=== PATIENT | male | born 1950 | race Caucasian/White ===

== ENCOUNTER 2016-06-28 07:53 | Day surgery (SDC) | payer MEDICARE, BC ==
[2016-06-28] MEDS ORDERED: fentaNYL 100 MCG/2 ML SDV ONE (08:21)
[2016-06-28] MEDS ORDERED: Midazolam 1 MG/ML 2 ML SDV ONE (08:21)
[2016-06-28] MEDS ORDERED: Propofol 200 MG/20 ML SDV ONE (08:21)
[2016-06-28] MEDS ORDERED: Dextrose 5%-Lactated Ringers 1,000 ML IV SCH (08:30)
[2016-06-28 12:31] VITALS: BP 148/86
--- NOTE | 2016-07-04 14:26 | OR ---
DATE OF PROCEDURE: 06/28/2016 PREOPERATIVE DIAGNOSIS: Rectal bleeding. POSTOPERATIVE DIAGNOSES: Rectal bleeding associated with: 1. With excoriated hemorrhoids. 2. Single small polyp in descending colon (45 cm). PROCEDURE PERFORMED: Flexible colonoscopy with polypectomy by snare technique ([id number]). ANESTHESIA: IV sedation. INDICATION FOR PROCEDURE: The patient presents with some intermittent rectal bleeding by history, this most likely is hemorrhoidal in nature. Plan is to proceed with a flexible colonoscopy with biopsies and/or polypectomy as indicated. Potential risks including bleeding and perforation were discussed, and the patient wishes to proceed. DETAILS OF PROCEDURE: The patient was taken to the operating room and placed in a left lateral decubitus position. IV sedation was administered, after which the initial digital rectal exam was performed and was unremarkable. Colonoscope was then passed into the rectum. This showed some excoriated hemorrhoids. These were covered with fibrinous material and was mildly engorged. There was no active bleeding or blood seen, but these certainly would be a likely source of intermittent bleeding. The scope was then passed eventually to the level of cecum. The prep was fairly good with there only being a small amount of liquid stool present. The only additional pathology was that of a small polyp measuring around 5 mm in the descending colon measured 45 cm from the dentate line. Apart from that, there was no diverticula, no areas of colitis, no areas of additional polyps or signs of neoplasia. The scope was then withdrawn. The above were findings reconfirmed. The polypectomy snare was then placed around on the base of the polyp, and this was excised. This was then sent for histologic evaluation. No bleeding from the polypectomy site was seen and the procedure then concluded. Plan will be to call the patient with regard to the pathologic findings. Assuming this is a tubular adenoma, then the next colonoscopy should probably be in 2 years. Apart from that, if he develops progressive frequent or large volume of bleeding from hemorrhoids, surgical consultation in the clinic should be obtained to consider hemorrhoid banding. Erickson Miguel MD /[id number]
== END 2016-06-28 12:35 | disposition home or self-care (01) ==
LOC: JP.SDS 07:53
PROVIDERS: ATTEND Surgery
DX: K64.8 Other hemorrhoids (principal); K63.5 Polyp of colon; K62.5 Hemorrhage of anus and rectum; I10 Essential (primary) hypertension; Q23.1 Congenital insufficiency of aortic valve; I51.7 Cardiomegaly; K21.0 Gastro-esophageal reflux disease with esophagitis; Z79.899 Other long term (current) drug therapy
CPT/HCPCS: 45385; J2250; J2704; J3010; J7042; 88305

== ENCOUNTER 2023-05-17 11:54 | Emergency (ER) | payer MEDICARE ==
[2023-05-17 13:06] LABS: BASOPHILS ABSOLUTE AUTO 0.03 K/uL (0.00-0.10); BASOPHILS PERCENT AUTO 0.3 % (0.1-1.3); EOSINOPHILS ABSOLUTE AUTO 0.39 K/uL (0.00-0.40); EOSINOPHILS PERCENT AUTO 4.3 % (0.0-5.4); HEMATOCRIT 36.3 % (38.4-49.7); IMMATURE GRAN ABSOLUTE AUTO 0.07 K/uL (0.00-0.23); IMMATURE GRAN PERCENT AUTO 0.8 % (0.0-0.7); LYMPHOCYTES ABSOLUTE AUTO 1.77 K/uL (0.8-3.3); LYMPHOCYTES PERCENT AUTO 19.6 % (11.4-47.7); MEAN CORPUSCULAR HGB CONC 33.1 g/dL (31.6-35.5); MEAN CORPUSCULAR VOLUME 87.7 fL (81.4-99.0); MONOCYTES ABSOLUTE AUTO 0.81 K/uL (0.20-0.90); NEUTROPHILS ABSOLUTE AUTO 5.94 K/uL (1.0-7.6); PLATELET COUNT,PLT 210 K/uL (130-375); RED BLOOD CELL COUNT 4.14 M/uL (4.14-5.76)
[2023-05-17 13:13] LABS: APPEARANCE,URINE CLEAR (CLEAR); BILIRUBIN,URINE NEGATIVE (NEGATIVE); COLOR,URINE YELLOW (YELLOW); GLUCOSE,URINE NEGATIVE (NEGATIVE); KETONES,URINE NEGATIVE (NEGATIVE); LEUKOCYTE ESTERASE,URINE SMALL (NEGATIVE); NITRITE,URINE NEGATIVE (NEGATIVE); OCCULT BLOOD,URINE MODERATE (NEGATIVE); PROTEIN,URINE TRACE mg/dL (NEGATIVE); UROBILINOGEN,URINE 0.2 EU/dL (0.2-1.0)
[2023-05-17 13:18] LABS: AMORPHOUS SEDIMENT,URINE NOT SEEN; BACTERIA,URINE RARE; EPITHELIAL CELLS,URINE NOT SEEN; MUCUS,URINE NOT SEEN
[2023-05-17 13:22] LABS: CALCIUM 8.5 mg/dL (8.5-10.1); CREATININE 0.9 mg/dL (0.8-1.3); EST CRCL DRUG DOSING (CG) 69.67 mL/min; POTASSIUM,K 3.4 mmol/L (3.6-5.2)
[2023-05-17 13:23] LABS: ANION GAP 13.4 mmol/L (5.0-14.0)
[2023-05-17 15:12] VITALS: BP 166/109; PULSE 81
== END 2023-05-17 15:32 | disposition home or self-care (01) ==
LOC: JP.ED 11:54
DX: R31.9 Hematuria, unspecified (principal); R39.14 Feeling of incomplete bladder emptying; K59.00 Constipation, unspecified; E87.6 Hypokalemia; R82.81 Pyuria; K57.30 Diverticulosis of large intestine without perforation or abscess without bleeding; I10 Essential (primary) hypertension; K21.9 Gastro-esophageal reflux disease without esophagitis; Z88.8 Allergy status to other drugs, medicaments and biological substances
CPT/HCPCS: 36415; 74176; 74176-26; 80048; 81001; 85025; 86140; 87086; 99284